=== PATIENT | male | born 1935 | race Asian ===

== ENCOUNTER 2018-01-14 18:25 | Emergency (ER) | END 2018-01-14 22:42 | disposition home or self-care (01) ==

== ENCOUNTER 2018-07-10 12:47 | Inpatient (IN) | payer MEDICARE, BC ==
[~2018-07-10] VITALS: Ht 170.2 cm; Wt 61.8 kg
[~2018-07-10 12:47] MED LIST: ATOR40TA68 PO; CLOP75TA19 PO; DUTA0.5C PO; OLME40TA13 PO; TAMS0.4C2 PO
--- NOTE | 2018-07-10 13:47 | ERD ---
ER Documentation Chief Complaint Chief Complaint pt is bib with c/o feeling weak since this am, HPI 83-year-old male with a history of hypertension with pacemaker brought in by his for a complete planes of feeling weak since this morning intermittently. He denies any associated chest pain, shortness of breath, nausea or vomiting. No fevers or chills. No abdominal pain, dysuria, hematuria, decrease in urination. Patient has felt like this in the past and was brought here a few months ago for similar symptoms. But at that time he was vomiting. He was recently taken off of the beta-cooper 1 week ago due to hypotension. He is currently on amiodarone. ROS All systems reviewed and are negative except as per history of present illness. Medications Home Meds Reported Medications Atorvastatin* (Atorvastatin*) 40 Mg Tablet, 40 MG PO QHS, #30 TAB 07/10/18 Tamsulosin Hcl* (Tamsulosin Hcl*) 0.4 Mg Cap.er.24h, 0.4 MG PO HS, CAP 07/10/18 Olmesartan Medoxomil (Benicar) 40 Mg Tablet, 40 MG PO DAILY, #30 TAB 07/10/18 Amiodarone Hcl* (Amiodarone Hcl*) 100 Mg Tablet, 100 MG PO DAILY, #30 TAB 07/10/18 Clopidogrel Bisulfate* (Clopidogrel Bisulfate*) 75 Mg Tablet, 75 MG PO DAILY, #30 TAB 07/10/18 Dutasteride* (Avodart*) 0.5 Mg Capsule, 0.5 MG PO DAILY, CAP 07/10/18 Discontinued Reported Medications Dutasteride* (Avodart*) 0.5 Mg Capsule, 0.5 MG PO DAILY, CAP 01/14/18 Tamsulosin Hcl* (Tamsulosin Hcl*) 0.4 Mg Cap.er.24h, 0.4 MG PO HS, CAP 01/14/18 Clopidogrel Bisulfate* (Clopidogrel Bisulfate*) 75 Mg Tablet, 75 MG PO DAILY, #30 TAB 01/14/18 Olmesartan Medoxomil (Benicar) 40 Mg Tablet, 40 MG PO DAILY, #30 TAB 01/14/18 Atorvastatin* (Atorvastatin*) 40 Mg Tablet, 40 MG PO QHS, #30 TAB 01/14/18 Allergies Allergies: Coded Allergies: No Known Allergy (Unverified , 07/10/18) PMhx/Soc History of Surgery: Yes (pacemaker) Anesthesia Reaction: No Hx Neurological Disorder: No Hx Respiratory Disorders: No Hx Cardiac Disorders: Yes (htn ) Hx Psychiatric Problems: No Hx Miscellaneous Medical Probl: No Hx Alcohol Use: No Hx Substance Use: No Hx Tobacco Use: No Smoking Status: Never smoker FmHx Family History: No diabetes Physical Exam Vitals Vital Signs Date Temp Pulse Resp B/P (MAP) Pulse Ox O2 O2 Flow FiO2 Time Delivery Rate 07/10/18 Nasal 2 14:02 Cannula 07/10/18 98.3 35 18 161/74 98 12:57 (103) Physical Exam Const: No acute distress, well-appearing, nontoxic, no diaphoresis Head: Atraumatic Eyes: Normal Conjunctiva ENT: Dry mucous membranes. Normal External Ears, Nose and Mouth. Neck: Full range of motion. No meningismus. Resp: Clear to auscultation bilaterally Cardio: Irregular rhythm, normal rate at time of examination. No murmurs. 2+ distal pulses Abd: Soft, non tender, non distended. Normal bowel sounds Skin: No petechiae or rashes Back: No midline or flank tenderness Ext: No cyanosis, or edema Neur: Awake and alert, oriented x3, normal speech, no facial asymmetry, strength and sensations intact in all 4 extremities Psych: Normal Mood and Affect Result Diagram: 07/10/18 1318 07/10/18 1318 Results 24 hrs Laboratory Tests Test 07/10/18 13:18 White Blood Count 6.5 10^3/ul Red Blood Count 4.18 10^6/ul Hemoglobin 13.3 g/dl Hematocrit 39.1 % Mean Corpuscular Volume 93.5 fl Mean Corpuscular Hemoglobin 31.8 pg Mean Corpuscular Hemoglobin Concent 34.0 g/dl Red Cell Distribution Width 13.0 % Platelet Count 189 10^3/UL Mean Platelet Volume 8.9 fl Immature Granulocytes % 0.300 % Neutrophils % 64.1 % Lymphocytes % 16.6 % Monocytes % 12.9 % Eosinophils % 5.5 % Basophils % 0.6 % Nucleated Red Blood Cells % 0.0 /100WBC Immature Granulocytes # 0.020 10^3/ul Neutrophils # 4.2 10^3/ul Lymphocytes # 1.1 10^3/ul Monocytes # 0.8 10^3/ul Eosinophils # 0.4 10^3/ul Basophils # 0.0 10^3/ul Nucleated Red Blood Cells # 0.0 10^3/ul Sodium Level 131 mmol/L Potassium Level 4.1 mmol/L Chloride Level 97 mmol/L Carbon Dioxide Level 25 mmol/L Anion Gap 9 Blood Urea Nitrogen 17 mg/dl Creatinine 0.72 mg/dl Est Glomerular Filtrat Rate mL/min mL/min Glucose Level 81 mg/dl Calcium Level 9.1 mg/dl Troponin I < 0.012 ng/ml Current Medications Medications Dose Sig/Agustín Start Time Status Last (Trade) Ordered Route PRN Stop Time Admin Dose Reason Admin Sodium 1,000 ml @ Q1H ONCE 07/10/18 Chloride 1,000 mls/hr IV 15:20 07/10/18 16:19 Ondansetron 4 mg ER BRIDGE 07/10/18 HCl (Zofran PRN IV 15:30 Inj) NAUSEA/VOMITI 07/11/18 15:29 NG 650 mg ER BRIDGE 07/10/18 Acetaminophen PRN PO 15:30 (Tylenol .MILD PAIN 07/11/18 15:29 Tab) 1-3 OR TEMP Procedures/MDM EMERGENT LABS AND DIAGNOSTIC STUDIES: Lab Results above were reviewed and interpreted by me. CBC: no anemia or evidence of infection BMP: Mild hyponatremia. No evidence of significant electrolyte abnormality, renal failure, hypoglycemia Troponin within normal limits, not indicative of cardiac ischemia EKG: Rate/Rhythm: Sinus rhythm with PVCs and bigeminy pattern QRS, ST, T-waves: Right bundle branch block, No changes consistent w/ acute ischemia Impression: No evidence of ischemia or arrhythmia EKG: Rate/Rhythm: Electronic ventricular pacemaker at 78 bpm with occasional PVCs in the trigeminy pattern QRS, ST, T-waves: [No changes consistent w/ acute ischemia] Impression: Frequent PVCs, no ischemic changes Radiology Results as interpreted by Radiology below were reviewed by Lynette Arvizu MD: Chest x-ray shows no acute abnormalities Initial Nursing notes reviewed. Previous Medical Records requested via the Electronic Health Record. EMERGENCY DEPARTMENT COURSE / MEDICAL DECISION MAKING: Patient is presenting with generalized weakness, likely secondary to his ectopy causing pacemaker to not function appropriately. No evidence of acute coronary syndrome. Possible dehydration. He was given 1 L of IV fluids. Pacemaker was interrogated. Per the interrogator, pacemaker is functioning normally. However since the patient is having frequent ectopic beats, this is during the pacemaker off which is likely causing him to feel weak. There is no evidence of severe electrolyte abnormality that requires correction. The cause of his ectopy is unclear at this time. However the patient will need admission for telemetry monitoring and cardiology consult. Accepting Care Team: Current data and ongoing care discussed. Time: Time of admission Primary Provider: Dr. Zuhair Sykes Diagnosis: Primary Impression: Acute weakness Additional Impression: Frequent PVCs Condition: Serious NOAH ARVIZU MD Jul 10, 2018 13:47
[2018-07-10] MEDS ORDERED: DUTA0.5C PO (13:54)
[2018-07-10] MEDS ORDERED: CLOP75TA19 PO (13:54)
[2018-07-10] MEDS ORDERED: AMIO100T4 PO (13:54)
[2018-07-10] MEDS ORDERED: OLME40TA13 PO (13:55)
[2018-07-10] MEDS ORDERED: TAMS0.4C2 PO (13:55)
[2018-07-10] MEDS ORDERED: ATOR40TA68 PO (13:56)
[2018-07-10] MEDS ORDERED: SOD CHLORIDE 0.9% 1,000 ML IV ONE (15:20)
[2018-07-10] MEDS ORDERED: ONDANSETRON 4 MG INJ IV PRN ×2 (15:30→17:30)
[2018-07-10] MEDS ORDERED: ACETAMINOPHEN 325 MG TAB PO PRN ×2 (15:30→17:30)
[2018-07-10 17:12] VITALS: BP 154/75; PULSE 58; RESP 20
[2018-07-10 17:13] VITALS: PULSE 79
[2018-07-10] MEDS ORDERED: DOCUSATE SODIUM 100 MG CAP PO PRN (17:30)
[2018-07-10] MEDS ORDERED: NACL 0.9% 3 ML SYG IV SCH (17:30)
[2018-07-10] MEDS ORDERED: hydrALAzine 20 MG INJ IV PRN (17:30)
[2018-07-10] MEDS ORDERED: NITROGLYCERIN (SL) 0.4 MG TAB SL PRN (17:30)
[2018-07-10] MEDS ORDERED: morphine 2 MG INJ IV PRN (17:30)
[2018-07-10] MEDS ORDERED: HYDROCODONE/APAP (5/325) TAB PO PRN (17:30)
[2018-07-10] MEDS ORDERED: LORAZEPAM 2 MG INJ IV PRN (17:30)
[2018-07-10] MEDS ORDERED: ALBUTEROL/IPRATROPIUM (NEB) 3 ML AMP HHN PRN (17:30)
[2018-07-10] MEDS ORDERED: MAGNESIUM HYDROXIDE 30ML CUP PO PRN (17:30)
[2018-07-10 17:49] VITALS: Ht 170.2 cm; Wt 61.8 kg
[2018-07-10] MEDS: SOD CHLORIDE 0.45% 1,000 ML IV SCH (18:45)
[2018-07-10 20:00] VITALS: BP 123/59; PULSE 71; RESP 20
[2018-07-10 20:01] VITALS: PULSE 70
[2018-07-10] MEDS: TAMSULOSIN (SR) 0.4 MG CAP PO SCH (20:13)
[2018-07-10] MEDS: ATORVASTATIN 40 MG TAB PO SCH (20:13)
--- NOTE | 2018-07-10 20:20 | HP ---
DATE OF ADMISSION: 07/10/2018 IDENTIFICATION: This is an 83-year-old male. CHIEF COMPLAINT: Weakness and bradycardia. HISTORY OF PRESENT ILLNESS: An 83-year-old male with past medical history of hypertension, pacemaker placement about 3 years ago, has been having weakness symptoms. Symptoms have been going on for the last few days. The patient denies any chest pain or shortness of breath, no fevers or chills or traci sea, vomiting, no upper or lower GI bleeding, no diarrhea or constipation. Apparently, the patient w as recently put on either amiodarone or amlodipine as an outpatient and he has been taking that for t he last week that was prescribed by his heart doctor. Since that time, he has been feeling weak. Ap parently he had been taking a beta cooper before that for the last 2 months, but his heart doctor, a ccording to the family, had stopped that medicine because the patient had been having a low blood pre ssure and possible low heart rate at that time. When the patient came in to the ER today, he was fou nd with heart rate in the 30s and the ER called the pacemaker people to come interrogate the pacemake r. They found that the pacemaker appears to be functioning normally, but the patient is having frequ ent ectopic beats, which is causing the pacemaker to not function appropriately. PAST MEDICAL HISTORY: As above. ALLERGIES: NO KNOWN DRUG ALLERGIES. HOME MEDICATIONS: 1. Again, he has been on amlodipine or amiodarone as an outpatient. 2. Also, on atorvastatin 40 mg at bedtime. 3. Plavix 75 mg daily. 4. Flomax 0.4 mg at bedtime. 5. Avodart 0.5 mg daily. PAST SURGICAL HISTORY: Pacemaker placement in the past, cataract surgery in the past. SOCIAL HISTORY: Negative for smoking , drinking, or IV drug abuse. FAMILY HISTORY: Noncontributory. PHYSICAL EXAMINATION: VITAL SIGNS: Today, T-max 98.3, pulse 35, respirations 18, blood pressure 161/74, satting at 98% on 2 liters nasal cannula. GENERAL: The patient is lying in bed. is at the bedside. No acute distress. HEENT: Pupils equal, round, react to light. Extraocular muscles intact. NECK: Supple, no thyromegaly. LUNGS: Slightly distant breath sounds bilaterally. CARDIOVASCULAR: Slightly bradycardic heart rate. No rubs or gallops. ABDOMEN: Soft, nontender, nondistended. Normal bowel sounds. No rebound or guarding. MUSCULOSKELETAL: No lower extremity edema bilaterally. NEUROLOGIC: No focal deficits. LABORATORIES: The CBC is normal. The basic metabolic panel is normal. Troponin is negative x1. Co ags are normal. Chest x-ray shows cardiomegaly and atherosclerosis, permanent pacemaker, otherwise u nremarkable. ASSESSMENT AND PLAN: An 83-year-old male with weakness with signs of bradycardia and ectopic beats, possibly causing his pacemaker to not function properly, prior history of pacemaker placement and hyp ertension. 1. Weakness, likely secondary to patient's bradycardia as his pacemaker appears not to be functionin g appropriately secondary to ectopic beats. Admit the patient. We will hold his home blood pressure medicines for now hydralazine 10 mg IV q.6 p.r.n. systolic greater than 160. We will monitor his heart rate very carefully. We will get a cardiology consult as well. We will get echocardiogram as well. The patient may need to be on a new cardiac medication that does not interfere or potentia lly cause ectopic beats that interferes with his pacemaker but we will discuss this with the cardiolo gy team. For now, continue Plavix. 2. Looks like possible high cholesterol. Follow up lipid panel. Continue Lipitor. 3. History of prostate issues. Continue Flomax. 4. Deep venous thrombosis prophylaxis, sequential compression devices. 5. Hypertension. See #1. Dictated By: RODY MUHAMMAD Conf#: [id number] DID#: [id number]
[2018-07-11] VITALS (11 sets, daily range): BP systolic 127–149; BP diastolic 56–63; PULSE 64–99; RESP 18–20
[2018-07-11] MEDS: SOD CHLORIDE 0.45% 1,000 ML IV SCH (07:30)
[2018-07-11] MEDS: DUTASTERIDE 0.5 MG CAP PO SCH (09:27)
[2018-07-11] MEDS: CLOPIDOGREL 75 MG TAB PO SCH (09:27)
--- NOTE | 2018-07-11 11:55 | PN ---
Date/Time of Note Date/Time of Note DATE: 07/11/18 TIME: 11:52 Assessment/Plan VTE Prophylaxis Risk score (from Nsg)>0 risk: 4 SCD applied (from Nsg): Yes Pharmacological prophylaxis: other Lines/Catheters IV Catheter Type (from Nrsg): Peripheral IV Assessment/Plan Hospital Course S: Patient's heart rate overall appears to be improved since yesterday, although having some PVCs and it appears to not be pacing every beat consistently. Asymptomatic. Per nursing staff appeared to tolerate diet last night, presently an order was placed for n.p.o. this morning however. Waiting to be seen by cardiology team. O: VS - see below PHYSICAL EXAMINATION: GENERAL: lying in bed. No acute distress. HEENT: Pupils equal, round, react to light. Extraocular muscles intact. NECK: Supple, no thyromegaly. LUNGS: Slightly distant breath sounds bilaterally. CARDIOVASCULAR: Slightly bradycardic heart rate. No rubs or gallops. ABDOMEN: Soft, nontender, nondistended. Normal bowel sounds. No rebound or guarding. MUSCULOSKELETAL: No lower extremity edema bilaterally. NEUROLOGIC: No focal deficits. ASSESSMENT AND PLAN: 83-year-old male with weakness with signs of bradycardia and ectopic beats, possibly causing his pacemaker to not function properly, prior history of pacemaker placement and hypertension. 1. Weakness- likely secondary to patient's bradycardia as his pacemaker appears not to be functioning appropriately secondary to ectopic beats. - Again holding his home Bystolic and amiodarone which the patient apparently was taking at least a week prior to this admission. - monitor heart rate, follow-up recommendations from cardiology team - For now, continue Plavix. - PT and OT eval's have been ordered since yesterday, follow-up official consults of these 2. high cholesterol - Continue Lipitor. 3. History of prostate issues. Continue Flomax. 4. Deep venous thrombosis prophylaxis, sequential compression devices. 5. Hypertension. See #1. Result Diagram: 07/11/18 0559 07/11/18 0559 Results 24hrs Laboratory Tests Test 07/10/18 13:18 07/10/18 18:19 07/11/18 05:59 White Blood Count 6.5 4.4 #L Red Blood Count 4.18 L 4.05 L Hemoglobin 13.3 L 12.9 L Hematocrit 39.1 L 37.2 L Mean Corpuscular Volume 93.5 91.9 Mean Corpuscular Hemoglobin 31.8 31.9 Mean Corpuscular Hemoglobin Concent 34.0 34.7 Red Cell Distribution Width 13.0 12.7 Platelet Count 189 190 Mean Platelet Volume 8.9 9.2 Immature Granulocytes % 0.300 0.500 H Neutrophils % 64.1 54.7 Lymphocytes % 16.6 20.1 Monocytes % 12.9 H 15.1 H Eosinophils % 5.5 8.9 H Basophils % 0.6 0.7 Nucleated Red Blood Cells % 0.0 0.0 Immature Granulocytes # 0.020 0.020 Neutrophils # 4.2 2.4 Lymphocytes # 1.1 0.9 Monocytes # 0.8 0.7 Eosinophils # 0.4 0.4 Basophils # 0.0 0.0 Nucleated Red Blood Cells # 0.0 0.0 Sodium Level 131 L 130 L Potassium Level 4.1 4.3 Chloride Level 97 100 Carbon Dioxide Level 25 23 Anion Gap 9 7 Blood Urea Nitrogen 17 15 Creatinine 0.72 0.71 Est Glomerular Filtrat Rate mL/min Glucose Level 81 83 Calcium Level 9.1 8.6 Troponin I < 0.012 Free Thyroxine 1.30 Prothrombin Time 12.8 Prothrombin Time Ratio 1.0 INR International Normalized Ratio 0.95 Activated Partial Thromboplast Time 32.6 Hemoglobin A1c 5.7 Phosphorus Level 3.2 Magnesium Level 2.2 Triglycerides Level 40 Cholesterol Level 103 LDL Cholesterol, Calculated 51 HDL Cholesterol 44 Cholesterol/HDL Ratio 2.3 Thyroid Stimulating Hormone (TSH) 1.600 Exam/Review of Systems Exam Vitals Vital Signs Date Temp Pulse Resp B/P (MAP) Pulse Ox O2 O2 Flow FiO2 Time Delivery Rate 07/11/18 98.4 71 20 129/61 92 Room Air 11:08 (83) 07/11/18 2.0 00:56 Intake and Output 07/10/18 07/10/18 07/11/18 1515:00 23:00 07:00 IntakeIntake Total 1300 ml 450 ml OutputOutput Total 400 ml 800 ml BalanceBalance 900 ml -350 ml Results Results 24hrs Laboratory Tests Test 07/10/18 13:18 07/10/18 18:19 07/11/18 05:59 White Blood Count 6.5 4.4 #L Red Blood Count 4.18 L 4.05 L Hemoglobin 13.3 L 12.9 L Hematocrit 39.1 L 37.2 L Mean Corpuscular Volume 93.5 91.9 Mean Corpuscular Hemoglobin 31.8 31.9 Mean Corpuscular Hemoglobin Concent 34.0 34.7 Red Cell Distribution Width 13.0 12.7 Platelet Count 189 190 Mean Platelet Volume 8.9 9.2 Immature Granulocytes % 0.300 0.500 H Neutrophils % 64.1 54.7 Lymphocytes % 16.6 20.1 Monocytes % 12.9 H 15.1 H Eosinophils % 5.5 8.9 H Basophils % 0.6 0.7 Nucleated Red Blood Cells % 0.0 0.0 Immature Granulocytes # 0.020 0.020 Neutrophils # 4.2 2.4 Lymphocytes # 1.1 0.9 Monocytes # 0.8 0.7 Eosinophils # 0.4 0.4 Basophils # 0.0 0.0 Nucleated Red Blood Cells # 0.0 0.0 Sodium Level 131 L 130 L Potassium Level 4.1 4.3 Chloride Level 97 100 Carbon Dioxide Level 25 23 Anion Gap 9 7 Blood Urea Nitrogen 17 15 Creatinine 0.72 0.71 Est Glomerular Filtrat Rate mL/min Glucose Level 81 83 Calcium Level 9.1 8.6 Troponin I < 0.012 Free Thyroxine 1.30 Prothrombin Time 12.8 Prothrombin Time Ratio 1.0 INR International Normalized Ratio 0.95 Activated Partial Thromboplast Time 32.6 Hemoglobin A1c 5.7 Phosphorus Level 3.2 Magnesium Level 2.2 Triglycerides Level 40 Cholesterol Level 103 LDL Cholesterol, Calculated 51 HDL Cholesterol 44 Cholesterol/HDL Ratio 2.3 Thyroid Stimulating Hormone (TSH) 1.600 Medications Medication Current Medications IV Flush (NS 3 ml) 3 ml PER PROTOCOL IV ; Start 07/10/18 at 17:30 Ondansetron HCl (Zofran Inj) 4 mg Q6H PRN IV NAUSEA/VOMITING; Start 07/10/18 at 17:30 Acetaminophen (Tylenol Tab) 650 mg Q6H PRN PO .PAIN 1-3 OR TEMP; Start 07/10/18 at 17:30 Acetaminophen/ Hydrocodone Bitart ([place] (5/325)) 1 tab Q6H PRN PO .MOD PAIN 4- 6; Start 07/10/18 at 17:30 Morphine Sulfate (morphine) 2 mg Q4H PRN IV .SEVERE PAIN 7-10; Start 07/10/18 at 17:30 Docusate Sodium (Colace) 100 mg Q12H PRN PO .CONSTIPATION; Start 07/10/18 at 17:30 Magnesium Hydroxide (Milk Of Mag) 30 ml DAILY PRN PO .CONSTIPATION; Start 07/10/18 at 17:30 Sodium Chloride 1,000 ml @ 75 mls/hr [id number] IV Last administered on 07/10/18at 18:45; Admin Dose 75 MLS/HR; Start 07/10/18 at 17:29 Lorazepam (Ativan) 0.5 mg Q6H PRN IV ANXIETY; Start 07/10/18 at 17:30 Albuterol/ Ipratropium (Duoneb) 3 ml Q4H RESP THERAPY PRN HHN SHORTNESS OF BREATH; Start 07/10/18 at 17:30 Hydralazine HCl (Apresoline) 10 mg Q6H PRN IV ELEVATED BLOOD PRESSURE; Start 07/10/18 at 17:30 Nitroglycerin (Nitroglycerin (Sl Tab) 0.4 Mg) 1 tab Q5M PRN SL ANGINA; Start 07/10/18 at 17:30 Atorvastatin Calcium (Lipitor) 40 mg QHS PO Last administered on 07/10/18at 20:13; Admin Dose 40 MG; Start 07/10/18 at 21:00 Clopidogrel Bisulfate (plaVIX) 75 mg DAILY PO Last administered on 07/11/18at 09:27; Admin Dose 75 MG; Start 07/11/18 at 09:00 Dutasteride (Avodart) 0.5 mg DAILY PO Last administered on 07/11/18 09:27; Admin Dose 0.5 MG; Start 07/11/18 at 09:00 Tamsulosin HCl (Flomax) 0.4 mg HS PO Last administered on 07/10/18at 20:13; Admin Dose 0.4 MG; Start 07/10/18 at 21:00 RODY FOUNTAIN Jul 11, 2018 11:55
--- NOTE | 2018-07-11 15:10 | CONS ---
Assessment/Plan Assessment/Plan Hospital Course (Demo Recall) dizziness symptomatic frequent PVC HTN Dyslipidemia BPH SSS S/ P PPM REC: start amiodarone drip toprol xl tele monitoring echo correct lytes including Mg K prn thank you KENNEDI CHAMBERS MD Consultation Date/Type/Reason Admit Date/Time Jul 10, 2018 at 15:22 Date of Consultation: Jul 11, 2018 Type of Consult Cardiology Reason for Consultation arrhythmia Requesting Provider: RODY FOUNTAIN Date/Time of Note DATE: 07/11/18 TIME: 15:03 Hx of Present Illness CARDIOLOGY CONSULTATION NOTE CC: dizziness HPI: This is a pleasant 83-year-old male with past medical history of hypertension, BIIOTRONIK pacemaker placement about 3 years ago, has been having weakness and dizziness x weeks. 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 in ER he was noted to have frequent PC and subsequently bradycardic pulse due to frequent PVC. The patient denies any chest pain or shortness of breath, no fevers or chills or nausea, vomiting, no upper or lower GI bleeding, no diarrhea or constipation. D/W his PAST MEDICAL HISTORY: HTN Dyslipidemia sss s/ pPPM BPH ALLERGIES: NO KNOWN DRUG ALLERGIES. HOME MEDICATIONS: 1. Again, he has been on amlodipine or amiodarone as an outpatient. 2. Also, on atorvastatin 40 mg at bedtime. 3. Plavix 75 mg daily. 4. Flomax 0.4 mg at bedtime. 5. Avodart 0.5 mg daily. PAST SURGICAL HISTORY: Biotronik Pacemaker placement in the past, cataract surgery in the past. SOCIAL HISTORY: Negative for smoking , drinking, or IV drug abuse. FAMILY HISTORY: No CAD ROS: as above only. he denies all others Past Medical History Home Meds Reported Medications Atorvastatin* (Atorvastatin*) 40 Mg Tablet, 40 MG PO QHS, #30 TAB 07/10/18 Tamsulosin Hcl* (Tamsulosin Hcl*) 0.4 Mg Cap.er.24h, 0.4 MG PO HS, CAP 07/10/18 Olmesartan Medoxomil (Benicar) 40 Mg Tablet, 40 MG PO DAILY, #30 TAB 07/10/18 Amiodarone Hcl* (Amiodarone Hcl*) 100 Mg Tablet, 100 MG PO DAILY, #30 TAB 07/10/18 Clopidogrel Bisulfate* (Clopidogrel Bisulfate*) 75 Mg Tablet, 75 MG PO DAILY, #30 TAB 07/10/18 Dutasteride* (Avodart*) 0.5 Mg Capsule, 0.5 MG PO DAILY, CAP 07/10/18 Discontinued Reported Medications Dutasteride* (Avodart*) 0.5 Mg Capsule, 0.5 MG PO DAILY, CAP 01/14/18 Tamsulosin Hcl* (Tamsulosin Hcl*) 0.4 Mg Cap.er.24h, 0.4 MG PO HS, CAP 01/14/18 Clopidogrel Bisulfate* (Clopidogrel Bisulfate*) 75 Mg Tablet, 75 MG PO DAILY, #30 TAB 01/14/18 Olmesartan Medoxomil (Benicar) 40 Mg Tablet, 40 MG PO DAILY, #30 TAB 01/14/18 Atorvastatin* (Atorvastatin*) 40 Mg Tablet, 40 MG PO QHS, #30 TAB 01/14/18 Medications Current Medications IV Flush (NS 3 ml) 3 ml PER PROTOCOL IV ; Start 07/10/18 at 17:30 Ondansetron HCl (Zofran Inj) 4 mg Q6H PRN IV NAUSEA/VOMITING; Start 07/10/18 at 17:30 Acetaminophen (Tylenol Tab) 650 mg Q6H PRN PO .PAIN 1-3 OR TEMP; Start 07/10/18 at 17:30 Acetaminophen/ Hydrocodone Bitart ([place] (5/325)) 1 tab Q6H PRN PO .MOD PAIN 4- 6; Start 07/10/18 at 17:30 Morphine Sulfate (morphine) 2 mg Q4H PRN IV .SEVERE PAIN 7-10; Start 07/10/18 at 17:30 Docusate Sodium (Colace) 100 mg Q12H PRN PO .CONSTIPATION; Start 07/10/18 at 17:30 Magnesium Hydroxide (Milk Of Mag) 30 ml DAILY PRN PO .CONSTIPATION; Start 07/10/18 at 17:30 Lorazepam (Ativan) 0.5 mg Q6H PRN IV ANXIETY; Start 07/10/18 at 17:30 Albuterol/ Ipratropium (Duoneb) 3 ml Q4H RESP THERAPY PRN HHN SHORTNESS OF BREATH; Start 07/10/18 at 17:30 Hydralazine HCl (Apresoline) 10 mg Q6H PRN IV ELEVATED BLOOD PRESSURE; Start 07/10/18 at 17:30 Nitroglycerin (Nitroglycerin (Sl Tab) 0.4 Mg) 1 tab Q5M PRN SL ANGINA; Start 07/10/18 at 17:30 Atorvastatin Calcium (Lipitor) 40 mg QHS PO Last administered on 07/10/18at 20:13; Admin Dose 40 MG; Start 07/10/18 at 21:00 Clopidogrel Bisulfate (plaVIX) 75 mg DAILY PO Last administered on 07/11/18at 09:27; Admin Dose 75 MG; Start 07/11/18 at 09:00 Dutasteride (Avodart) 0.5 mg DAILY PO Last administered on 07/11/18at 09:27; Admin Dose 0.5 MG; Start 07/11/18 at 09:00 Tamsulosin HCl (Flomax) 0.4 mg HS PO Last administered on 07/10/18at 20:13; Admin Dose 0.4 MG; Start 07/10/18 at 21:00 Allergies: Coded Allergies: No Known Allergy (Unverified , 07/10/18) Social History Smoking Status: Never smoker Exam/Review of Systems Vital Signs Vitals Vital Signs Date Temp Pulse Resp B/P (MAP) Pulse Ox O2 O2 Flow FiO2 Time Delivery Rate 07/11/18 70 12:00 07/11/18 98.4 20 129/61 92 Room Air 11:08 (83) 07/11/18 2.0 00:56 Intake and Output 07/10/18 07/10/18 07/11/18 1515:00 23:00 07:00 IntakeIntake Total 1300 ml 450 ml OutputOutput Total 400 ml 800 ml BalanceBalance 900 ml -350 ml Exam Exam GEN ; no acute distres HEENT: NCAT. ANABELLA Neck no stridor or JVD CV RRR systolic murmur pulM: CTA b/l . no wheezing. no rhonchi GI: soft NT ND. NO rebound or guarding ext no C/C/E NEURO: AXO X 3 Psych; calm and pleasant ECG A paced with frequent PVC bigeminy CXR no acute disease pacer interrogation; normal function. battery for > 6 years left Labs Result Diagram: 07/11/1859 07/11/1859 Results 24hrs Laboratory Tests Test 07/10/18 18:19 07/11/18 05:59 Prothrombin Time 12.8 Prothrombin Time Ratio 1.0 INR International Normalized Ratio 0.95 Activated Partial Thromboplast Time 32.6 White Blood Count 4.4 #L Red Blood Count 4.05 L Hemoglobin 12.9 L Hematocrit 37.2 L Mean Corpuscular Volume 91.9 Mean Corpuscular Hemoglobin 31.9 Mean Corpuscular Hemoglobin Concent 34.7 Red Cell Distribution Width 12.7 Platelet Count 190 Mean Platelet Volume 9.2 Immature Granulocytes % 0.500 H Neutrophils % 54.7 Lymphocytes % 20.1 Monocytes % 15.1 H Eosinophils % 8.9 H Basophils % 0.7 Nucleated Red Blood Cells % 0.0 Immature Granulocytes # 0.020 Neutrophils # 2.4 Lymphocytes # 0.9 Monocytes # 0.7 Eosinophils # 0.4 Basophils # 0.0 Nucleated Red Blood Cells # 0.0 Sodium Level 130 L Potassium Level 4.3 Chloride Level 100 Carbon Dioxide Level 23 Anion Gap 7 Blood Urea Nitrogen 15 Creatinine 0.71 Est Glomerular Filtrat Rate mL/min Glucose Level 83 Hemoglobin A1c 5.7 Calcium Level 8.6 Phosphorus Level 3.2 Magnesium Level 2.2 Triglycerides Level 40 Cholesterol Level 103 LDL Cholesterol, Calculated 51 HDL Cholesterol 44 Cholesterol/HDL Ratio 2.3 Thyroid Stimulating Hormone (TSH) 1.600 Medications Medications Current Medications IV Flush (NS 3 ml) 3 ml PER PROTOCOL IV ; Start 07/10/18 at 17:30 Ondansetron HCl (Zofran Inj) 4 mg Q6H PRN IV NAUSEA/VOMITING; Start 07/10/18 at 17:30 Acetaminophen (Tylenol Tab) 650 mg Q6H PRN PO .PAIN 1-3 OR TEMP; Start 07/10/18 at 17:30 Acetaminophen/ Hydrocodone Bitart ([place] (5/325)) 1 tab Q6H PRN PO .MOD PAIN 4- 6; Start 07/10/18 at 17:30 Morphine Sulfate (morphine) 2 mg Q4H PRN IV .SEVERE PAIN 7-10; Start 07/10/18 at 17:30 Docusate Sodium (Colace) 100 mg Q12H PRN PO .CONSTIPATION; Start 07/10/18 at 17:30 Magnesium Hydroxide (Milk Of Mag) 30 ml DAILY PRN PO .CONSTIPATION; Start 07/10/18 at 17:30 Lorazepam (Ativan) 0.5 mg Q6H PRN IV ANXIETY; Start 07/10/18 at 17:30 Albuterol/ Ipratropium (Duoneb) 3 ml Q4H RESP THERAPY PRN HHN SHORTNESS OF BREATH; Start 07/10/18 at 17:30 Hydralazine HCl (Apresoline) 10 mg Q6H PRN IV ELEVATED BLOOD PRESSURE; Start 07/10/18 at 17:30 Nitroglycerin (Nitroglycerin (Sl Tab) 0.4 Mg) 1 tab Q5M PRN SL ANGINA; Start 07/10/18 at 17:30 Atorvastatin Calcium (Lipitor) 40 mg QHS PO Last administered on 07/10/18at 20:13; Admin Dose 40 MG; Start 07/10/18 at 21:00 Clopidogrel Bisulfate (plaVIX) 75 mg DAILY PO Last administered on 07/11/18 09:27; Admin Dose 75 MG; Start 07/11/18 at 09:00 Dutasteride (Avodart) 0.5 mg DAILY PO Last administered on 07/11/18 09:27; Admin Dose 0.5 MG; Start 07/11/18 at 09:00 Tamsulosin HCl (Flomax) 0.4 mg HS PO Last administered on 07/10/18at 20:13; Admin Dose 0.4 MG; Start 07/10/18 at 21:00 KENNEDI CHAMBERS MD Jul 11, 2018 15:10
[2018-07-11] MEDS ORDERED: AMIODARONE 150MG/D5W BOLUS 100 ML IV ONE (15:30)
[2018-07-11] MEDS: AMIODARONE 900 MG in DEXTROSE 5% 482 ML IV SCH (16:56)
--- NOTE | 2018-07-11 17:44 | RADRPT ---
Echocardiogram Report Patient Name: JEEWL SOPatient ID: [id number] : 114 (83y 5m)Study Date: 07/11/2018 9:36:36 AM Gender: MAccession #: [id number] Tech: TYRA Location: Ref.Physician: RODY FOUNTAIN Height(Cm): 168 BSA: 1.67Weight(Kg): 59.9 Quality: GoodAccount #: Procedures: Echocardiographic Report: Transthoracic echocardiogram with complete 2D, M-Mode, and doppler examination. Indications: Bradycardia. Measurements: 2D/M Mode Doppler Measurement Value Normal Range Measurement Value Normal Range LVIDd 2D 4.8 [ 4.2 - 5.8 ] cm AV Peak Mario 1.9 [ 100.0 - 170.0 ] cm/se c LVIDs 2D 2.5 [ 2.5 - 4.0 ] cm AV Peak PG 14.0 [ 2.0 - 9.0 ] mmHg LVPWd 2D 0.8 [ 0.6 - 1.0 ] cm LVOT Peak Mario 1.2 [ 70.0 - 110.0 ] cm/sec IVSd 2D 1.2 [ 0.6 - 1.0 ] cm LVOT Peak PG 6.0 [ 2.0 - 6.0 ] mmHg AoR Diam 2D 4.4 [ 2.6 - 3.4 ] cm MV E Peak Mario 0.8 [ 60.0 - 130.0 ] cm/sec EDV 2D 105.0 [ 62.0 - 150.0 ] ml MV A Peak Mario 1.4 [ 100.0 - 120.0 ] cm/se c ESV 2D 23.2 [ 21.0 - 61.0 ] ml MV E/A 0.6 [ 0.8 - 1.5 ] ratio EF 2D 77.9 [ 52.0 - 72.0 ] percent MV PHT 64.0 [ 20.0 - 100.0 ] msec LA Dimen 2D 3.7 [ 3.0 - 4.0 ] cm MV Decel Time 218 [ 104 - 258 ] msec MV Decel [place] 4 Lat E` Mario 0.1 [ 10.0 - 15.0 ] cm/sec Lateral E/E` 9.1 [ 1.0 - 2.0 ] ratio MV E/A 0.6 [ 0.8 - 1.5 ] ratio MVA PHT 3.4 [ 2.0 - 4.0 ] cm2 TR Peak Mario 2.6 [ 100.0 - 280.0 ] cm/se c TR Peak PG 27.0 mmHg PV Peak Mario 1.1 [ 40.0 - 80.0 ] cm/sec PV Peak PG 5.0 mmHg RVSP 37.0 [ 10.0 - 36.0 ] mmHg RA Pressure 10.0 mmHg Findings: Left Ventricle: Abnormal rhythm throughout exam, however, overall normal left ventricular systolic function. Normal left ventricular cavity size. Normal left ventricular wall thickness. Ejection fraction is visually estimated at 60-65 %. Tissue Doppler/Mitral Doppler indices are consistent with impaired relaxation (Stage I diastolic dysfunction). E/E'= 9. Right Ventricle: Normal right ventricular size. Normal right ventricular systolic function. Linear artifact in right ventricle suggestive of catheter, pacer lead, or ICD lead. Left Atrium: The left atrium is normal in size. Right Atrium: The right atrium is normal in size. Atrial Septum: Normal atrial septum. Mitral Valve: Mild mitral annular calcification. Mild mitral valve regurgitation. Aortic Valve: Aortic cusps appear mildly calcified. Trileaflet aortic valve. Mild to moderate aortic valve regurgitation. Tricuspid Valve: Normal appearance and function of the tricuspid valve with trace physiologic regurgitation. Estimated peak PA systolic pressure 37 mmHg. Pulmonic Valve: Normal pulmonic valve appearance. There is trace pulmonic regurgitation. Pericardium: Normal pericardium with no significant pericardial effusion. Aorta: Sinus of valsalva is dilated. Sinus of valsalva 4.40 cm. Ascending aorta is dilated. Ascending Aorta 4.90 cm. IVC: Normal size and normal respiratory collapse consistent with normal right atrial pressure. Pulmonary Artery: Normal pulmonary artery size. Conclusions: Abnormal rhythm throughout exam, however, overall normal left ventricular systolic function. Normal left ventricular cavity size. Normal left ventricular wall thickness. Ejection fraction is visually estimated at 60-65 %. Tissue Doppler/Mitral Doppler indices are consistent with impaired relaxation (Stage I diastolic dysfunction). E/E'= 9. Mild mitral annular calcification. Mild mitral valve regurgitation. Aortic cusps appear mildly calcified. Trileaflet aortic valve. Mild to moderate aortic valve regurgitation. Normal appearance and function of the tricuspid valve with trace physiologic regurgitation. Estimated peak PA systolic pressure 37 mmHg. g. Electronically Signed By: Jarad Valle 2018-07-11 17:43:50 PDT
[2018-07-11] MEDS: ATORVASTATIN 40 MG TAB PO SCH (20:08)
[2018-07-11] MEDS: TAMSULOSIN (SR) 0.4 MG CAP PO SCH (20:08)
[2018-07-11] MEDS: METOPROLOL (XL) 25 MG TAB PO SCH (20:08)
[2018-07-12] VITALS (12 sets, daily range): BP systolic 114–141; BP diastolic 61–82; PULSE 57–70; RESP 18
[2018-07-12] MEDS ORDERED: MELATONIN 5 MG TABLET PO ONE (01:00)
[2018-07-12] MEDS: CLOPIDOGREL 75 MG TAB PO SCH (08:33)
[2018-07-12] MEDS: DUTASTERIDE 0.5 MG CAP PO SCH (08:34)
[2018-07-12] MEDS: METOPROLOL (XL) 25 MG TAB PO SCH ×2 (08:34→20:26)
[2018-07-12] MEDS: AMIODARONE 900 MG in DEXTROSE 5% 482 ML IV SCH (15:51)
--- NOTE | 2018-07-12 18:22 | PN ---
Date/Time of Note Date/Time of Note DATE: 07/12/18 TIME: 18:21 Assessment/Plan VTE Prophylaxis Risk score (from Ns)>0 risk: 5 SCD applied (from Ns): Yes Pharmacological prophylaxis: NA/contraindicated Pharm contraindication: low risk/ambulating Lines/Catheters IV Catheter Type (from [facility]): Peripheral IV Assessment/Plan Assessment/Plan 83-year-old male with weakness with signs of bradycardia and ectopic beats, possibly causing his pacemaker to not function properly, prior history of pacemaker placement and hypertension. 1. Weakness- likely secondary to patient's bradycardia as his pacemaker appears not to be functioning appropriately secondary to ectopic beats. - Again holding his home Bystolic and amiodarone which the patient apparently was taking at least a week prior to this admission. - monitor heart rate, follow-up recommendations from cardiology team - For now, continue Plavix. - PT and OT eval's have been ordered since yesterday, follow-up official consults of these 2. high cholesterol - Continue Lipitor. 3. History of prostate issues. Continue Flomax. 4. Deep venous thrombosis prophylaxis, sequential compression devices. 5. Hypertension. See #1. Result Diagram: 07/12/18 0605 07/12/18 0605 Subjective 24 Hr Interval Summary Free Text/Dictation No acute overnight events. Patient ambulated 100 ft with physical therapy today, some nausea afterwards, no chest pain or SOB. Exam/Review of Systems Exam Vitals Vital Signs Date Temp Pulse Resp B/P (MAP) Pulse Ox O2 O2 Flow FiO2 Time Delivery Rate 07/12/18 59 16:01 07/12/18 98.3 18 129/71 98 15:06 (90) 07/12/18 Room Air 04:00 07/11/18 21 22:11 07/11/18 2.0 18:30 Intake and Output 07/11/18 07/11/18 07/12/18 1515:00 23:00 07:00 IntakeIntake Total 1142.86 ml 966.62 ml BalanceBalance 1142.86 ml 966.62 ml Exam GENERAL: lying in bed. No acute distress. HEENT: Pupils equal, round, react to light. Extraocular muscles intact. NECK: Supple, no thyromegaly. LUNGS: Slightly distant breath sounds bilaterally. CARDIOVASCULAR: Slightly bradycardic heart rate. No rubs or gallops. ABDOMEN: Soft, nontender, nondistended. Normal bowel sounds. No rebound or guarding. MUSCULOSKELETAL: No lower extremity edema bilaterally. Results Results 24hrs Laboratory Tests Test 07/12/18 06:05 White Blood Count 4.8 Red Blood Count 4.24 L Hemoglobin 13.4 L Hematocrit 38.6 L Mean Corpuscular Volume 91.0 Mean Corpuscular Hemoglobin 31.6 Mean Corpuscular Hemoglobin Concent 34.7 Red Cell Distribution Width 12.5 Platelet Count 202 Mean Platelet Volume 9.1 Immature Granulocytes % 0.200 Neutrophils % 60.9 Lymphocytes % 19.1 Monocytes % 12.5 H Eosinophils % 6.7 Basophils % 0.6 Nucleated Red Blood Cells % 0.0 Immature Granulocytes # 0.010 Neutrophils # 2.9 Lymphocytes # 0.9 Monocytes # 0.6 Eosinophils # 0.3 Basophils # 0.0 Nucleated Red Blood Cells # 0.0 Sodium Level 129 L Potassium Level 4.0 Chloride Level 96 L Carbon Dioxide Level 25 Anion Gap 8 Blood Urea Nitrogen 17 Creatinine 0.73 Est Glomerular Filtrat Rate mL/min Glucose Level 109 Calcium Level 8.8 Magnesium Level 2.1 Total Bilirubin 1.5 H Direct Bilirubin 0.00 Indirect Bilirubin 1.5 H Aspartate Amino Transf (AST/SGOT) 23 Alanine Aminotransferase (ALT/SGPT) 19 Alkaline Phosphatase 63 Total Protein 6.2 Albumin 3.4 Globulin 2.80 Albumin/Globulin Ratio 1.21 Medications Medication Current Medications IV Flush (NS 3 ml) 3 ml PER PROTOCOL IV ; Start 07/10/18 at 17:30 Ondansetron HCl (Zofran Inj) 4 mg Q6H PRN IV NAUSEA/VOMITING Last administered on 07/12/18at 10:54; Admin Dose 4 MG; Start 07/10/18 at 17:30 Acetaminophen (Tylenol Tab) 650 mg Q6H PRN PO .PAIN 1-3 OR TEMP; Start 07/10/18 at 17:30 Acetaminophen/ Hydrocodone Bitart ([place] (5/325)) 1 tab Q6H PRN PO .MOD PAIN 4- 6; Start 07/10/18 at 17:30 Morphine Sulfate (morphine) 2 mg Q4H PRN IV .SEVERE PAIN 7-10; Start 07/10/18 at 17:30 Docusate Sodium (Colace) 100 mg Q12H PRN PO .CONSTIPATION; Start 07/10/18 at 17:30 Magnesium Hydroxide (Milk Of Mag) 30 ml DAILY PRN PO .CONSTIPATION; Start 07/10/18 at 17:30 Lorazepam (Ativan) 0.5 mg Q6H PRN IV ANXIETY; Start 07/10/18 at 17:30 Albuterol/ Ipratropium (Duoneb) 3 ml Q4H RESP THERAPY PRN HHN SHORTNESS OF BREATH; Start 07/10/18 at 17:30 Hydralazine HCl (Apresoline) 10 mg Q6H PRN IV ELEVATED BLOOD PRESSURE; Start 07/10/18 at 17:30 Nitroglycerin (Nitroglycerin (Sl Tab) 0.4 Mg) 1 tab Q5M PRN SL ANGINA; Start 07/10/18 at 17:30 Atorvastatin Calcium (Lipitor) 40 mg QHS PO Last administered on 07/11/18 20:08; Admin Dose 40 MG; Start 07/10/18 at 21:00 Clopidogrel Bisulfate (plaVIX) 75 mg DAILY PO Last administered on 07/12/18 08:33; Admin Dose 75 MG; Start 07/11/18 at 09:00 Dutasteride (Avodart) 0.5 mg DAILY PO Last administered on 07/12/18 08:34; Admin Dose 0.5 MG; Start 07/11/18 at 09:00 Tamsulosin HCl (Flomax) 0.4 mg HS PO Last administered on 07/11/18 20:08; Admin Dose 0.4 MG; Start 07/10/18 at 21:00 Metoprolol Succinate (Toprol Xl) 25 mg BID PO Last administered on 07/12/18 08:34; Admin Dose 25 MG; Start 07/11/18 at 21:00 MAGDA ARIAS MD Jul 12, 2018 18:22
[2018-07-12] MEDS: ATORVASTATIN 40 MG TAB PO SCH (20:25)
[2018-07-12] MEDS: TAMSULOSIN (SR) 0.4 MG CAP PO SCH (20:25)
--- NOTE | 2018-07-12 21:54 | CONS ---
Assessment/Plan Assessment/Plan Assessment/Plan (Daily) This is a 83 y/o male with pmh of HTN, HLD, SSS and pacer The pt has Bigemany has tried medication has failed The pt will need an ablation Will try to transfer the pt for the ablation otherwise, will discharge him and schedule him as outpt. Consultation Date/Type/Reason Admit Date/Time Jul 10, 2018 at 15:22 Type of Consult Cardiology Requesting Provider: KENNEDI CHAMBERS MD Date/Time of Note DATE: 07/12/18 TIME: 21:51 Hx of Present Illness This is a 83 y/o male with pmh of SSS and pacer (biotronik) Who presented with weakness has constant bigemany called to see him for ablation will try to transfer him for ablation Past Medical History Home Meds Reported Medications Atorvastatin* (Atorvastatin*) 40 Mg Tablet, 40 MG PO QHS, #30 TAB 07/10/18 Tamsulosin Hcl* (Tamsulosin Hcl*) 0.4 Mg Cap.er.24h, 0.4 MG PO HS, CAP 07/10/18 Olmesartan Medoxomil (Benicar) 40 Mg Tablet, 40 MG PO DAILY, #30 TAB 07/10/18 Amiodarone Hcl* (Amiodarone Hcl*) 100 Mg Tablet, 100 MG PO DAILY, #30 TAB 07/10/18 Clopidogrel Bisulfate* (Clopidogrel Bisulfate*) 75 Mg Tablet, 75 MG PO DAILY, #30 TAB 07/10/18 Dutasteride* (Avodart*) 0.5 Mg Capsule, 0.5 MG PO DAILY, CAP 07/10/18 Discontinued Reported Medications Dutasteride* (Avodart*) 0.5 Mg Capsule, 0.5 MG PO DAILY, CAP 01/14/18 Tamsulosin Hcl* (Tamsulosin Hcl*) 0.4 Mg Cap.er.24h, 0.4 MG PO HS, CAP 01/14/18 Clopidogrel Bisulfate* (Clopidogrel Bisulfate*) 75 Mg Tablet, 75 MG PO DAILY, #30 TAB 01/14/18 Olmesartan Medoxomil (Benicar) 40 Mg Tablet, 40 MG PO DAILY, #30 TAB 01/14/18 Atorvastatin* (Atorvastatin*) 40 Mg Tablet, 40 MG PO QHS, #30 TAB 01/14/18 Medications Current Medications IV Flush (NS 3 ml) 3 ml PER PROTOCOL IV ; Start 07/10/18 at 17:30 Ondansetron HCl (Zofran Inj) 4 mg Q6H PRN IV NAUSEA/VOMITING Last administered on 07/12/18at 10:54; Admin Dose 4 MG; Start 07/10/18 at 17:30 Acetaminophen (Tylenol Tab) 650 mg Q6H PRN PO .PAIN 1-3 OR TEMP; Start 07/10/18 at 17:30 Acetaminophen/ Hydrocodone Bitart ([place] (5/325)) 1 tab Q6H PRN PO .MOD PAIN 4- 6; Start 07/10/18 at 17:30 Morphine Sulfate (morphine) 2 mg Q4H PRN IV .SEVERE PAIN 7-10; Start 07/10/18 at 17:30 Docusate Sodium (Colace) 100 mg Q12H PRN PO .CONSTIPATION; Start 07/10/18 at 17:30 Magnesium Hydroxide (Milk Of Mag) 30 ml DAILY PRN PO .CONSTIPATION; Start 07/10/18 at 17:30 Lorazepam (Ativan) 0.5 mg Q6H PRN IV ANXIETY; Start 07/10/18 at 17:30 Albuterol/ Ipratropium (Duoneb) 3 ml Q4H RESP THERAPY PRN HHN SHORTNESS OF BREATH; Start 07/10/18 at 17:30 Hydralazine HCl (Apresoline) 10 mg Q6H PRN IV ELEVATED BLOOD PRESSURE; Start 07/10/18 at 17:30 Nitroglycerin (Nitroglycerin (Sl Tab) 0.4 Mg) 1 tab Q5M PRN SL ANGINA; Start 07/10/18 at 17:30 Atorvastatin Calcium (Lipitor) 40 mg QHS PO Last administered on 07/12/18at 20:25; Admin Dose 40 MG; Start 07/10/18 at 21:00 Clopidogrel Bisulfate (plaVIX) 75 mg DAILY PO Last administered on 07/12/18at 08:33; Admin Dose 75 MG; Start 07/11/18 at 09:00 Dutasteride (Avodart) 0.5 mg DAILY PO Last administered on 07/12/18at 08:34; Ad min Dose 0.5 MG; Start 07/11/18 at 09:00 Tamsulosin HCl (Flomax) 0.4 mg HS PO Last administered on 07/12/18at 20:25; Admin Dose 0.4 MG; Start 07/10/18 at 21:00 Metoprolol Succinate (Toprol Xl) 25 mg BID PO Last administered on 07/12/18at 20:26; Admin Dose 25 MG; Start 07/11/18 at 21:00 Allergies: Coded Allergies: No Known Allergy (Unverified , 07/10/18) Social History Smoking Status: Never smoker Exam/Review of Systems Vital Signs Vitals Vital Signs Date Temp Pulse Resp B/P (MAP) Pulse Ox O2 O2 Flow FiO2 Time Delivery Rate 07/12/18 67 20:00 07/12/18 98.0 18 140/80 93 19:47 (100) 07/12/18 Room Air 04:00 07/11/18 21 22:11 07/11/18 2.0 18:30 Intake and Output 07/11/18 07/11/18 07/12/18 1515:00 23:00 07:00 IntakeIntake Total 1142.86 ml 966.62 ml BalanceBalance 1142.86 ml 966.62 ml Labs Result Diagram: 07/12/18 0605 07/12/18 0605 Results 24hrs Laboratory Tests Test 07/12/18 06:05 White Blood Count 4.8 Red Blood Count 4.24 L Hemoglobin 13.4 L Hematocrit 38.6 L Mean Corpuscular Volume 91.0 Mean Corpuscular Hemoglobin 31.6 Mean Corpuscular Hemoglobin Concent 34.7 Red Cell Distribution Width 12.5 Platelet Count 202 Mean Platelet Volume 9.1 Immature Granulocytes % 0.200 Neutrophils % 60.9 Lymphocytes % 19.1 Monocytes % 12.5 H Eosinophils % 6.7 Basophils % 0.6 Nucleated Red Blood Cells % 0.0 Immature Granulocytes # 0.010 Neutrophils # 2.9 Lymphocytes # 0.9 Monocytes # 0.6 Eosinophils # 0.3 Basophils # 0.0 Nucleated Red Blood Cells # 0.0 Sodium Level 129 L Potassium Level 4.0 Chloride Level 96 L Carbon Dioxide Level 25 Anion Gap 8 Blood Urea Nitrogen 17 Creatinine 0.73 Est Glomerular Filtrat Rate mL/min Glucose Level 109 Calcium Level 8.8 Magnesium Level 2.1 Total Bilirubin 1.5 H Direct Bilirubin 0.00 Indirect Bilirubin 1.5 H Aspartate Amino Transf (AST/SGOT) 23 Alanine Aminotransferase (ALT/SGPT) 19 Alkaline Phosphatase 63 Total Protein 6.2 Albumin 3.4 Globulin 2.80 Albumin/Globulin Ratio 1.21 Medications Medications Current Medications IV Flush (NS 3 ml) 3 ml PER PROTOCOL IV ; Start 07/10/18 at 17:30 Ondansetron HCl (Zofran Inj) 4 mg Q6H PRN IV NAUSEA/VOMITING Last administered on 07/12/18at 10:54; Admin Dose 4 MG; Start 07/10/18 at 17:30 Acetaminophen (Tylenol Tab) 650 mg Q6H PRN PO .PAIN 1-3 OR TEMP; Start 07/10/18 at 17:30 Acetaminophen/ Hydrocodone Bitart ([place] (5/325)) 1 tab Q6H PRN PO .MOD PAIN 4- 6; Start 07/10/18 at 17:30 Morphine Sulfate (morphine) 2 mg Q4H PRN IV .SEVERE PAIN 7-10; Start 07/10/18 at 17:30 Docusate Sodium (Colace) 100 mg Q12H PRN PO .CONSTIPATION; Start 07/10/18 at 17:30 Magnesium Hydroxide (Milk Of Mag) 30 ml DAILY PRN PO .CONSTIPATION; Start 06/13 at 17:30 Lorazepam (Ativan) 0.5 mg Q6H PRN IV ANXIETY; Start 07/10/18 at 17:30 Albuterol/ Ipratropium (Duoneb) 3 ml Q4H RESP THERAPY PRN HHN SHORTNESS OF BREATH; Start 07/10/18 at 17:30 Hydralazine HCl (Apresoline) 10 mg Q6H PRN IV ELEVATED BLOOD PRESSURE; Start 07/10/18 at 17:30 Nitroglycerin (Nitroglycerin (Sl Tab) 0.4 Mg) 1 tab Q5M PRN SL ANGINA; Start 07/10/18 at 17:30 Atorvastatin Calcium (Lipitor) 40 mg QHS PO Last administered on 07/12/18at 20:25; Admin Dose 40 MG; Start 07/10/18 at 21:00 Clopidogrel Bisulfate (plaVIX) 75 mg DAILY PO Last administered on 07/12/18at 08:33; Admin Dose 75 MG; Start 07/11/18 at 09:00 Dutasteride (Avodart) 0.5 mg DAILY PO Last administered on 07/12/18at 08:34; Admin Dose 0.5 MG; Start 07/11/18 at 09:00 Tamsulosin HCl (Flomax) 0.4 mg HS PO Last administered on 07/12/18at 20:25; Admin Dose 0.4 MG; Start 07/10/18 at 21:00 Metoprolol Succinate (Toprol Xl) 25 mg BID PO Last administered on 07/12/18at 20:26; Admin Dose 25 MG; Start 07/11/18 at 21:00 LAZARO VALERIO MD Jul 12, 2018 21:54
[2018-07-13] VITALS (12 sets, daily range): BP systolic 104–123; BP diastolic 58–74; PULSE 54–77; RESP 18
[2018-07-13] MEDS: CLOPIDOGREL 75 MG TAB PO SCH (08:31)
[2018-07-13] MEDS: METOPROLOL (XL) 25 MG TAB PO SCH ×2 (08:32→21:20)
[2018-07-13] MEDS: DUTASTERIDE 0.5 MG CAP PO SCH (13:06)
--- NOTE | 2018-07-13 14:52 | CONS ---
Consult Date/Type/Reason Admit Date/Time Jul 12, 2018 at 07:10 Initial Consult Date 07/11/18 Requesting Provider: KENNEDI CHAMBERS MD Date/Time of Note DATE: 07/13/18 TIME: 14:47 Subjective Cardiology follow-up progress note Subjective Discussed with essentially patient my patient is accompanied dizziness intermittently but rhythm reviewed showed much improvement less frequent PVCs. No chest migration or palpitation. Electrophysiology consult plan is appreciated. Discussed with Dr. Francisco. Patient was recommended to undergo ablation however apparently spoken to the family including son and they have refused at the moment. Objective: General: no acute distress HEENT: NC/AT. pupils are equal. round. NECK: NO JVD. no stridor. CV: RRR. systolic murmur; no gallop or rubs. PULM: no wheezing or rhonchi. GI: SOFT, NT, ND, no rebound or guarding Extremity: trace B/L LE edema. no clubbing. neuro: awake and alert, OX3. Psych: calm and pleasant rectal: deferred : normal Objective Vitals Vital Signs Date Temp Pulse Resp B/P (MAP) Pulse Ox O2 O2 Flow FiO2 Time Delivery Rate 07/13/18 61 12:01 07/13/18 97.4 18 104/64 94 Room Air 11:13 (77) 07/11/18 21 22:11 07/11/18 2.0 18:30 Intake and Output 07/12/18 07/12/18 07/13/18 1515:00 23:00 07:00 IntakeIntake Total 800 ml 780 ml OutputOutput Total 975 ml BalanceBalance -175 ml 780 ml Results/Medications Result Diagram: 07/13/18 0612 07/13/18 0612 Results 24 hrs Laboratory Tests Test 07/13/18 06:12 White Blood Count 5.0 Red Blood Count 4.21 L Hemoglobin 13.3 L Hematocrit 37.9 L Mean Corpuscular Volume 90.0 Mean Corpuscular Hemoglobin 31.6 Mean Corpuscular Hemoglobin Concent 35.1 Red Cell Distribution Width 12.5 Platelet Count 212 Mean Platelet Volume 9.2 Immature Granulocytes % 0.400 Neutrophils % 65.0 Lymphocytes % 12.4 L Monocytes % 14.8 H Eosinophils % 6.8 Basophils % 0.6 Nucleated Red Blood Cells % 0.0 Immature Granulocytes # 0.020 Neutrophils # 3.2 Lymphocytes # 0.6 L Monocytes # 0.7 Eosinophils # 0.3 Basophils # 0.0 Nucleated Red Blood Cells # 0.0 Sodium Level 125 L Potassium Level 4.1 Chloride Level 93 L Carbon Dioxide Level 25 Anion Gap 7 Blood Urea Nitrogen 15 Creatinine 0.72 Est Glomerular Filtrat Rate mL/min Glucose Level 102 Calcium Level 8.8 Home Meds Reported Medications Atorvastatin* (Atorvastatin*) 40 Mg Tablet, 40 MG PO QHS, #30 TAB 07/10/18 Tamsulosin Hcl* (Tamsulosin Hcl*) 0.4 Mg Cap.er.24h, 0.4 MG PO HS, CAP 07/10/18 Olmesartan Medoxomil (Benicar) 40 Mg Tablet, 40 MG PO DAILY, #30 TAB 07/10/18 Amiodarone Hcl* (Amiodarone Hcl*) 100 Mg Tablet, 100 MG PO DAILY, #30 TAB 07/10/18 Clopidogrel Bisulfate* (Clopidogrel Bisulfate*) 75 Mg Tablet, 75 MG PO DAILY, #30 TAB 07/10/18 Dutasteride* (Avodart*) 0.5 Mg Capsule, 0.5 MG PO DAILY, CAP 07/10/18 Discontinued Reported Medications Dutasteride* (Avodart*) 0.5 Mg Capsule, 0.5 MG PO DAILY, CAP 01/14/18 Tamsulosin Hcl* (Tamsulosin Hcl*) 0.4 Mg Cap.er.24h, 0.4 MG PO HS, CAP 01/14/18 Clopidogrel Bisulfate* (Clopidogrel Bisulfate*) 75 Mg Tablet, 75 MG PO DAILY, #30 TAB 01/14/18 Olmesartan Medoxomil (Benicar) 40 Mg Tablet, 40 MG PO DAILY, #30 TAB 01/14/18 Atorvastatin* (Atorvastatin*) 40 Mg Tablet, 40 MG PO QHS, #30 TAB 01/14/18 Medications Current Medications IV Flush (NS 3 ml) 3 ml PER PROTOCOL IV ; Start 07/10/18 at 17:30 Ondansetron HCl (Zofran Inj) 4 mg Q6H PRN IV NAUSEA/VOMITING Last administered on 07/12/18at 10:54; Admin Dose 4 MG; Start 07/10/18 at 17:30 Acetaminophen (Tylenol Tab) 650 mg Q6H PRN PO .PAIN 1-3 OR TEMP; Start 07/10/18 at 17:30 Acetaminophen/ Hydrocodone Bitart ([place] (5/325)) 1 tab Q6H PRN PO .MOD PAIN 4- 6; Start 07/10/18 at 17:30 Morphine Sulfate (morphine) 2 mg Q4H PRN IV .SEVERE PAIN 7-10; Start 07/10/18 at 17:30 Docusate Sodium (Colace) 100 mg Q12H PRN PO .CONSTIPATION; Start 07/10/18 at 17:30 Magnesium Hydroxide (Milk Of Mag) 30 ml DAILY PRN PO .CONSTIPATION; Start 07/10/18 at 17:30 Lorazepam (Ativan) 0.5 mg Q6H PRN IV ANXIETY; Start 07/10/18 at 17:30 Albuterol/ Ipratropium (Duoneb) 3 ml Q4H RESP THERAPY PRN HHN SHORTNESS OF BREATH; Start 07/10/18 at 17:30 Hydralazine HCl (Apresoline) 10 mg Q6H PRN IV ELEVATED BLOOD PRESSURE; Start 07/10/18 at 17:30 Nitroglycerin (Nitroglycerin (Sl Tab) 0.4 Mg) 1 tab Q5M PRN SL ANGINA; Start 07/10/18 at 17:30 Atorvastatin Calcium (Lipitor) 40 mg QHS PO Last administered on 07/12/18 20:25; Admin Dose 40 MG; Start 07/10/18 at 21:00 Clopidogrel Bisulfate (plaVIX) 75 mg DAILY PO Last administered on 07/13/18 08:31; Admin Dose 75 MG; Start 07/11/18 at 09:00 Dutasteride (Avodart) 0.5 mg DAILY PO Last administered on 07/13/18 13:06; Admin Dose 0.5 MG; Start 07/11/18 at 09:00 Tamsulosin HCl (Flomax) 0.4 mg HS PO Last administered on 07/12/18 20:25; Admin Dose 0.4 MG; Start 07/10/18 at 21:00 Metoprolol Succinate (Toprol Xl) 25 mg BID PO Last administered on 07/13/18 08:32; Admin Dose 25 MG; Start 07/11/18 at 21:00 Assessment/Plan Hospital Course (Demo Recall) dizziness symptomatic frequent PVC HTN Dyslipidemia BPH SSS S/ P PPM Hyponatremia REC: We will monitor off the amiodarone toprol xl tele monitoring echo correct lytes including Mg K Correction of hyponatremia as per internal medicine outptcardiology 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
--- NOTE | 2018-07-13 15:00 | PN ---
Date/Time of Note Date/Time of Note DATE: 07/13/18 TIME: 14:59 Assessment/Plan VTE Prophylaxis Risk score (from Ns)>0 risk: 5 SCD applied (from Ns): Yes Pharmacological prophylaxis: NA/contraindicated Pharm contraindication: low risk/ambulating Lines/Catheters IV Catheter Type (from [facility]): Saline Lock Assessment/Plan Assessment/Plan 83-year-old male with weakness with signs of bradycardia and ectopic beats, possibly causing his pacemaker to not function properly, prior history of pacemaker placement and hypertension. 1. Weakness- likely secondary to patient's bradycardia as his pacemaker appears not to be functioning appropriately secondary to ectopic beats. - Again holding his home Bystolic and amiodarone which the patient apparently was taking at least a week prior to this admission. - monitor heart rate, follow-up recommendations from cardiology team - For now, continue Plavix. - PT and OT eval's have been ordered since yesterday, follow-up official consults of these 2. high cholesterol - Continue Lipitor. 3. History of prostate issues. Continue Flomax. 4. Deep venous thrombosis prophylaxis, sequential compression devices. 5. Hypertension. Continue metoprolol. 6. Hyponatremia - Na has dropped now to 125 - Will do volume challenge with normal saline bolus. If no response, will call renal. Result Diagram: 07/13/18 0612 07/13/18 0612 Subjective 24 Hr Interval Summary Free Text/Dictation No acute overnight events. Patient feeling well, ambulating. Exam/Review of Systems Exam Vitals Vital Signs Date Temp Pulse Resp B/P (MAP) Pulse Ox O2 O2 Flow FiO2 Time Delivery Rate 07/13/18 61 12:01 07/13/18 97.4 18 104/64 94 Room Air 11:13 (77) 07/11/18 21 22:11 07/11/18 2.0 18:30 Intake and Output 07/12/18 07/12/18 07/13/18 1515:00 23:00 07:00 IntakeIntake Total 800 ml 780 ml OutputOutput Total 975 ml BalanceBalance -175 ml 780 ml Exam GENERAL: lying in bed. No acute distress. HEENT: Pupils equal, round, react to light. Extraocular muscles intact. NECK: Supple, no thyromegaly. LUNGS: Slightly distant breath sounds bilaterally. CARDIOVASCULAR: Slightly bradycardic heart rate. No rubs or gallops. ABDOMEN: Soft, nontender, nondistended. Normal bowel sounds. No rebound or guarding. MUSCULOSKELETAL: No lower extremity edema bilaterally. Results Results 24hrs Laboratory Tests Test 07/13/18 06:12 White Blood Count 5.0 Red Blood Count 4.21 L Hemoglobin 13.3 L Hematocrit 37.9 L Mean Corpuscular Volume 90.0 Mean Corpuscular Hemoglobin 31.6 Mean Corpuscular Hemoglobin Concent 35.1 Red Cell Distribution Width 12.5 Platelet Count 212 Mean Platelet Volume 9.2 Immature Granulocytes % 0.400 Neutrophils % 65.0 Lymphocytes % 12.4 L Monocytes % 14.8 H Eosinophils % 6.8 Basophils % 0.6 Nucleated Red Blood Cells % 0.0 Immature Granulocytes # 0.020 Neutrophils # 3.2 Lymphocytes # 0.6 L Monocytes # 0.7 Eosinophils # 0.3 Basophils # 0.0 Nucleated Red Blood Cells # 0.0 Sodium Level 125 L Potassium Level 4.1 Chloride Level 93 L Carbon Dioxide Level 25 Anion Gap 7 Blood Urea Nitrogen 15 Creatinine 0.72 Est Glomerular Filtrat Rate mL/min Glucose Level 102 Calcium Level 8.8 Medications Medication Current Medications IV Flush (NS 3 ml) 3 ml PER PROTOCOL IV ; Start 07/10/18 at 17:30 Ondansetron HCl (Zofran Inj) 4 mg Q6H PRN IV NAUSEA/VOMITING Last administered on 07/12/18at 10:54; Admin Dose 4 MG; Start 07/10/18 at 17:30 Acetaminophen (Tylenol Tab) 650 mg Q6H PRN PO .PAIN 1-3 OR TEMP; Start 07/10/18 at 17:30 Acetaminophen/ Hydrocodone Bitart ([place] (5/325)) 1 tab Q6H PRN PO .MOD PAIN 4- 6; Start 07/10/18 at 17:30 Morphine Sulfate (morphine) 2 mg Q4H PRN IV .SEVERE PAIN 7-10; Start 07/10/18 at 17:30 Docusate Sodium (Colace) 100 mg Q12H PRN PO .CONSTIPATION; Start 07/10/18 at 17:30 Magnesium Hydroxide (Milk Of Mag) 30 ml DAILY PRN PO .CONSTIPATION; Start 07/10/18 at 17:30 Lorazepam (Ativan) 0.5 mg Q6H PRN IV ANXIETY; Start 07/10/18 at 17:30 Albuterol/ Ipratropium (Duoneb) 3 ml Q4H RESP THERAPY PRN HHN SHORTNESS OF BREATH; Start 07/10/18 at 17:30 Hydralazine HCl (Apresoline) 10 mg Q6H PRN IV ELEVATED BLOOD PRESSURE; Start 07/10/18 at 17:30 Nitroglycerin (Nitroglycerin (Sl Tab) 0.4 Mg) 1 tab Q5M PRN SL ANGINA; Start 07/10/18 at 17:30 Atorvastatin Calcium (Lipitor) 40 mg QHS PO Last administered on 07/12/18at 20:25; Admin Dose 40 MG; Start 07/10/18 at 21:00 Clopidogrel Bisulfate (plaVIX) 75 mg DAILY PO Last administered on 07/13/18at 08:31; Admin Dose 75 MG; Start 07/11/18 at 09:00 Dutasteride (Avodart) 0.5 mg DAILY PO Last administered on 07/13/18at 13:06; Admin Dose 0.5 MG; Start 07/11/18 at 09:00 Tamsulosin HCl (Flomax) 0.4 mg HS PO Last administered on 07/12/18at 20:25; Admin Dose 0.4 MG; Start 07/10/18 at 21:00 Metoprolol Succinate (Toprol Xl) 25 mg BID PO Last administered on 07/13/18at 08:32; Admin Dose 25 MG; Start 07/11/18 at 21:00 Sodium Chloride 1,000 ml @ 1,000 mls/hr Q1H ONCE IV ; Start 07/13/18 at 16:00; Stop 07/13/18 at 16:59 MAGDA ARIAS MD Jul 13, 2018 15:00
[2018-07-13] MEDS ORDERED: SOD CHLORIDE 0.9% 1,000 ML IV ONE (16:00)
--- NOTE | 2018-07-13 17:18 | PN ---
DATE: 07/12/2018 SUBJECTIVE: I discussed with the staff. Rhythm was reviewed. The patient with frequent PVCs despit e amiodarone drip. The patient and family intermittently has been refusing amiodarone, would agree t o have it done. He still complains of dizziness. MEDICATIONS: Reviewed. PHYSICAL EXAMINATION: VITAL SIGNS: Temperature 98.3, heart rate of 63, blood pressure 125/76, respirations 18, satting 93% . HEENT: Normocephalic, atraumatic. No acute distress. Eyes: Pupils are equal. CARDIOVASCULAR: Regular rate and rhythm, soft murmur. PULMONARY: Anteriorly with no wheezes. GASTROINTESTINAL: Soft, nontender. EXTREMITIES: Trivial edema. NEUROLOGIC: Awake, follows commands. PSYCHIATRIC: Appeared to be calm. LABORATORY DATA: WBC of 4.8, hemoglobin 13.4, platelets 202. Sodium of 129, potassium of 4, BUN of 17, creatinine of 0.73, glucose of 109. Mag is 2.1. ASSESSMENT AND PLAN: 1. Frequent premature ventricular contractions and bigeminy, appeared to be symptomatic. 2. Hypertension. 3. Hyponatremia. 4. Dyslipidemia. 5. Ventricular paced. No sick sinus syndrome, on permanent pacemaker. RECOMMENDATIONS: We will ask for electrophysiology consult. Dr. Nolan Tang has been consulted t o consider ablation. Completed amiodarone. Will monitor on telemetry. Dictated By: KENNEDI CHAMBERS MD AV/REBECA Conf#: [id number] DID#: [id number] CC: RODY FOUNTAIN;*End*
[2018-07-13] MEDS: TAMSULOSIN (SR) 0.4 MG CAP PO SCH (21:19)
[2018-07-13] MEDS: ATORVASTATIN 40 MG TAB PO SCH (21:20)
[2018-07-14] VITALS (9 sets, daily range): BP systolic 115–123; BP diastolic 55–65; PULSE 45–72; RESP 18–20
--- NOTE | 2018-07-14 08:12 | CONS ---
Consult Date/Type/Reason Admit Date/Time Jul 12, 2018 at 07:10 Initial Consult Date 07/11/18 Requesting Provider: KENNEDI CHAMBERS MD Date/Time of Note DATE: 07/14/18 TIME: 08:10 Subjective Cardiology follow-up progress note Subjective Discussed with staff. pt states he is feeling better today . No chest pain or palpitation. tele was reviewed still with eladia intermittently Electrophysiology consult plan is appreciated. Objective: General: no acute distress HEENT: NC/AT. pupils are equal. round. NECK: NO JVD. no stridor. CV: RRR. systolic murmur; no gallop or rubs. PULM: no wheezing or rhonchi. GI: SOFT, NT, ND, no rebound or guarding Extremity: trace B/L LE edema. no clubbing. neuro: awake and alert, OX3. Psych: calm and pleasant rectal: deferred : normal. ECHO Abnormal rhythm throughout exam, however, overall normal left ventricular systolic function. Normal left ventricular cavity size. Normal left ventricular wall thickness. Ejection fraction is visually estimated at 60-65 %. Tissue Doppler/Mitral Doppler indices are consistent with impaired relaxation (Stage I diastolic dysfunction). E/E'= 9. Mild mitral annular calcification. Mild mitral valve regurgitation. Aortic cusps appear mildly calcified. Trileaflet aortic valve. Mild to moderate aortic valve regurgitation. Normal appearance and function of the tricuspid valve with trace physiologic regurgitation. Estimated peak PA systolic pressure 37 mmHg. g. Objective Vitals Vital Signs Date Temp Pulse Resp B/P (MAP) Pulse Ox O2 O2 Flow FiO2 Time Delivery Rate 07/14/18 72 08:01 07/14/18 98.6 20 120/58 94 Room Air 07:58 (78) 07/11/18 21 22:11 07/11/18 2.0 18:30 Intake and Output 07/13/18 07/13/18 07/14/18 1414:59 22:59 06:59 IntakeIntake Total 600 ml 1500 ml OutputOutput Total 650 ml BalanceBalance 600 ml 850 ml Results/Medications Result Diagram: 07/14/18 0621 07/14/18 0621 Results 24 hrs Laboratory Tests Test 07/13/18 17:46 07/14/18 06:21 Sodium Level 125 L 128 L Potassium Level 4.1 4.2 Chloride Level 92 L 98 Carbon Dioxide Level 24 24 Anion Gap 9 6 Blood Urea Nitrogen 15 14 Creatinine 0.69 0.72 Est Glomerular Filtrat Rate mL/min Glucose Level 92 92 Calcium Level 8.5 8.6 White Blood Count 4.9 Red Blood Count 4.16 L Hemoglobin 13.1 L Hematocrit 37.7 L Mean Corpuscular Volume 90.6 Mean Corpuscular Hemoglobin 31.5 Mean Corpuscular Hemoglobin Concent 34.7 Red Cell Distribution Width 12.3 Platelet Count 214 Mean Platelet Volume 8.9 Immature Granulocytes % 0.800 H Neutrophils % 59.8 Lymphocytes % 15.2 Monocytes % 15.7 H Eosinophils % 7.7 H Basophils % 0.8 Nucleated Red Blood Cells % 0.0 Immature Granulocytes # 0.040 H Neutrophils # 2.9 Lymphocytes # 0.8 Monocytes # 0.8 Eosinophils # 0.4 Basophils # 0.0 Nucleated Red Blood Cells # 0.0 Home Meds Reported Medications Atorvastatin* (Atorvastatin*) 40 Mg Tablet, 40 MG PO QHS, #30 TAB 07/10/18 Tamsulosin Hcl* (Tamsulosin Hcl*) 0.4 Mg Cap.er.24h, 0.4 MG PO HS, CAP 07/10/18 Olmesartan Medoxomil (Benicar) 40 Mg Tablet, 40 MG PO DAILY, #30 TAB 07/10/18 Amiodarone Hcl* (Amiodarone Hcl*) 100 Mg Tablet, 100 MG PO DAILY, #30 TAB 07/10/18 Clopidogrel Bisulfate* (Clopidogrel Bisulfate*) 75 Mg Tablet, 75 MG PO DAILY, #30 TAB 07/10/18 Dutasteride* (Avodart*) 0.5 Mg Capsule, 0.5 MG PO DAILY, CAP 07/10/18 Discontinued Reported Medications Dutasteride* (Avodart*) 0.5 Mg Capsule, 0.5 MG PO DAILY, CAP 01/14/18 Tamsulosin Hcl* (Tamsulosin Hcl*) 0.4 Mg Cap.er.24h, 0.4 MG PO HS, CAP 01/14/18 Clopidogrel Bisulfate* (Clopidogrel Bisulfate*) 75 Mg Tablet, 75 MG PO DAILY, #30 TAB 01/14/18 Olmesartan Medoxomil (Benicar) 40 Mg Tablet, 40 MG PO DAILY, #30 TAB 01/14/18 Atorvastatin* (Atorvastatin*) 40 Mg Tablet, 40 MG PO QHS, #30 TAB 01/14/18 Medications Current Medications IV Flush (NS 3 ml) 3 ml PER PROTOCOL IV ; Start 07/10/18 at 17:30 Ondansetron HCl (Zofran Inj) 4 mg Q6H PRN IV NAUSEA/VOMITING Last administered on 07/12/18at 10:54; Admin Dose 4 MG; Start 07/10/18 at 17:30 Acetaminophen (Tylenol Tab) 650 mg Q6H PRN PO .PAIN 1-3 OR TEMP; Start 07/10/18 at 17:30 Acetaminophen/ Hydrocodone Bitart ([place] (5/325)) 1 tab Q6H PRN PO .MOD PAIN 4- 6; Start 07/10/18 at 17:30 Morphine Sulfate (morphine) 2 mg Q4H PRN IV .SEVERE PAIN 7-10; Start 07/10/18 at 17:30 Docusate Sodium (Colace) 100 mg Q12H PRN PO .CONSTIPATION; Start 07/10/18 at 17:30 Magnesium Hydroxide (Milk Of Mag) 30 ml DAILY PRN PO .CONSTIPATION; Start 07/10/18 at 17:30 Lorazepam (Ativan) 0.5 mg Q6H PRN IV ANXIETY; Start 07/10/18 at 17:30 Albuterol/ Ipratropium (Duoneb) 3 ml Q4H RESP THERAPY PRN HHN SHORTNESS OF DAVE ATH; Start 07/10/18 at 17:30 Hydralazine HCl (Apresoline) 10 mg Q6H PRN IV ELEVATED BLOOD PRESSURE; Start 07/10/18 at 17:30 Nitroglycerin (Nitroglycerin (Sl Tab) 0.4 Mg) 1 tab Q5M PRN SL ANGINA; Start 07/10/18 at 17:30 Atorvastatin Calcium (Lipitor) 40 mg QHS PO Last administered on 07/13/18at 21:2 0; Admin Dose 40 MG; Start 07/10/18 at 21:00 Clopidogrel Bisulfate (plaVIX) 75 mg DAILY PO Last administered on 07/13/18at 08:31; Admin Dose 75 MG; Start 07/11/18 at 09:00 Dutasteride (Avodart) 0.5 mg DAILY PO Last administered on 07/13/18at 13:06; Admin Dose 0.5 MG; Start 07/11/18 at 09:00 Tamsulosin HCl (Flomax) 0.4 mg HS PO Last administered on 07/13/18at 21:19; Admin Dose 0.4 MG; Start 07/10/18 at 21:00 Metoprolol Succinate (Toprol Xl) 25 mg BID PO Last administered on 07/13/18at 21:20; Admin Dose 25 MG; Start 07/11/18 at 21:00 Assessment/Plan Hospital Course (Demo Recall) dizziness symptomatic frequent PVC HTN Dyslipidemia BPH SSS S/ P PPM Hyponatremia REC: We will monitor off the amiodarone Cont toprol xl tele monitoring echo correct lytes including Mg K prn Correction of hyponatremia as per internal medicine outpt cardiology follow up with 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
[2018-07-14] MEDS: DUTASTERIDE 0.5 MG CAP PO SCH (08:36)
[2018-07-14] MEDS: CLOPIDOGREL 75 MG TAB PO SCH (08:37)
[2018-07-14] MEDS: METOPROLOL (XL) 25 MG TAB PO SCH (08:37)
--- NOTE | 2018-07-14 14:27 | PDOCDIS ---
Discharge Instructions DIAGNOSIS Discharge Diagnosis Frequent premature ventricular contractions and bigeminy, symptomatic CONDITION [id number] Patient Condition: [id number] Fair HOME CARE INSTRUCTIONS: [id number] Diet Instructions: [id number] Low Fat /Cholesterol ACTIVITY: [id number] Activity Restrictions: [id number] No Restrictions FOLLOW UP/APPOINTMENTS Follow-up Plan 1. Take all medications as prescribed. 2. See Dr. Kim in clinic within one week to check your sodium levels. 3. See Dr. Schaefer in clinic as scheduled. 4. See your primary care doctor in 1-2 weeks. 5. Return to the emergency room if you develop pressure-like chest pain that does not resolve with rest. MAGDA ARIAS MD Jul 14, 2018 14:27
--- NOTE | 2018-07-14 18:07 | DS ---
Date/Time of Note Date/Time of Note DATE: 07/14/18 TIME: 18:02 Discharge Summary Admission/Discharge Info Admit Date/Time Jul 10, 2018 Discharge Date/Time Jul 14, 2018 Discharge Diagnosis Frequent premature ventricular contractions and bigeminy, symptomatic Patient Condition: Good Consults Dr. Valle, cardiology Dr. Kim, nephrology Procedures None Hx of Present Illness CHIEF COMPLAINT: Weakness and bradycardia. HISTORY OF PRESENT ILLNESS: An 83-year-old male with past medical history of hypertension, pacemaker placement about 3 years ago, has been having weakness symptoms. Symptoms have been going on for the last few days. The patient denies any chest pain or shortness of breath, no fevers or chills or nausea, vomiting, no upper or lower GI bleeding, no diarrhea or constipation. Apparently, the patient was recently put on either amiodarone or amlodipine as an outpatient and he has been taking that for the last week that was prescribed by his heart doctor. Since that time, he has been feeling weak. Apparently he had been taking a beta cooper before that for the last 2 months, but his heart doctor, according to the family, had stopped that medicine because the patient had been having a low blood pressure and possible low heart rate at that time. When the patient came in to the ER today, he was found with heart rate in the 30s and the ER called the pacemaker people to come interrogate the pacemaker. They found that the pacemaker appears to be functioning normally, but the patient is having frequent ectopic beats, which is causing the pacemaker to not function appropriately. PAST MEDICAL HISTORY: As above. ALLERGIES: NO KNOWN DRUG ALLERGIES. HOME MEDICATIONS: 1. Again, he has been on amlodipine or amiodarone as an outpatient. 2. Also, on atorvastatin 40 mg at bedtime. 3. Plavix 75 mg daily. 4. Flomax 0.4 mg at bedtime. 5. Avodart 0.5 mg daily. PAST SURGICAL HISTORY: Pacemaker placement in the past, cataract surgery in the past. SOCIAL HISTORY: Negative for smoking , drinking, or IV drug abuse. FAMILY HISTORY: Noncontributory. Hospital Course The patient was admitted to telemetry. He was started on amiodarone gtt by cardiology. He does continue to have very frequent ectopic beats on telemetry which are probably the cause of his symptoms. These are present on and off of the amio gtt. Will plan for outpatient evaluation and possibly ablation by EP. He also was found to be very hyponatremic; Na 131 on arrival dropped to 125 but was uptrending at time of discharge. He did not appear to be symptomatic from this. The cause is unknown; he is not on diuretics. He will be seen by Dr. Kim in the clinic but it does appear to be a chronic problem. At time of discharge patient was feeling well, slightly dizzy, but ambulating 80+ feet with physical therapy. Home Meds Reported Medications Atorvastatin* (Atorvastatin*) 40 Mg Tablet, 40 MG PO QHS, #30 TAB 07/10/18 Tamsulosin Hcl* (Tamsulosin Hcl*) 0.4 Mg Cap.er.24h, 0.4 MG PO HS, CAP 07/10/18 Olmesartan Medoxomil (Benicar) 40 Mg Tablet, 40 MG PO DAILY, #30 TAB 07/10/18 Clopidogrel Bisulfate* (Clopidogrel Bisulfate*) 75 Mg Tablet, 75 MG PO DAILY, #30 TAB 07/10/18 Dutasteride* (Avodart*) 0.5 Mg Capsule, 0.5 MG PO DAILY, CAP 07/10/18 Discontinued Reported Medications Amiodarone Hcl* (Amiodarone Hcl*) 100 Mg Tablet, 100 MG PO DAILY, #30 TAB 07/10/18 Dutasteride* (Avodart*) 0.5 Mg Capsule, 0.5 MG PO DAILY, CAP 01/14/18 Tamsulosin Hcl* (Tamsulosin Hcl*) 0.4 Mg Cap.er.24h, 0.4 MG PO HS, CAP 01/14/18 Clopidogrel Bisulfate* (Clopidogrel Bisulfate*) 75 Mg Tablet, 75 MG PO DAILY, #30 TAB 01/14/18 Olmesartan Medoxomil (Benicar) 40 Mg Tablet, 40 MG PO DAILY, #30 TAB 01/14/18 Atorvastatin* (Atorvastatin*) 40 Mg Tablet, 40 MG PO QHS, #30 TAB 01/14/18 Follow-up Plan 1. Take all medications as prescribed. 2. See Dr. Kim in clinic within one week to check your sodium levels. 3. See Dr. Schaefer in clinic as scheduled. 4. See your primary care doctor in 1-2 weeks. 5. Return to the emergency room if you develop pressure-like chest pain that does not resolve with rest. Primary Care Provider Not On Staff Doctor Time spent on discharge: > 30 minutes Pending Labs Laboratory Tests Test 07/14/18 06:21 07/14/18 11:20 07/14/18 12:16 07/14/18 16:16 White Blood 4.9 Count 10^3/ul (4.8-10 .8) Red Blood 4.16 Count 10^6/ul (4.70-6 .10) Hemoglobin 13.1 g/dl (14.0-18.0 ) Hematocrit 37.7 % (42.0-52.0) Mean 90.6 Corpuscular fl (82.0-101.0) Volume Mean 31.5 Corpuscular pg (29.0-33.0) Hemoglobin Mean 34.7 Corpuscular g/dl (32.0-37.0 Hemoglobin Conc ) ent Red Cell 12.3 Distribution % (11.5-14.5) Width Platelet Count 214 10^3/UL (140-41 5) Mean Platelet 8.9 Volume fl (7.4-10.4) Immature 0.800 Granulocytes % % (0.001-0.429) Neutrophils % 59.8 % (39.0-77.0) Lymphocytes % 15.2 % (15.0-51.0) Monocytes % 15.7 % (0.0-11.0) Eosinophils % 7.7 % (0.0-7.0) Basophils % 0.8 % (0.0-2.0) Nucleated Red 0.0 Blood Cells % /100WBC (0.0-0. 0) Immature 0.040 Granulocytes # 10^3/ul (0.0-0. 031) Neutrophils # 2.9 10^3/ul (1.6-7. 5) Lymphocytes # 0.8 10^3/ul (0.8-2. 9) Monocytes # 0.8 10^3/ul (0.3-0. 9) Eosinophils # 0.4 10^3/ul (0.0-0. 5) Basophils # 0.0 10^3/ul (0.0-0. 1) Nucleated Red 0.0 Blood Cells # 10^3/ul (0.0-0. 0) Sodium Level 128 127 127 mmol/L (135-144 mmol/L (135-14 mmol/L (135-14 ) 4) 4) Potassium 4.2 3.8 Level mmol/L (3.5-5.1 mmol/L (3.5-5. ) 1) Chloride Level 98 97 mmol/L (97-110) mmol/L (97-110 ) Carbon Dioxide 24 22 Level mmol/L (21-31) mmol/L (21-31) Anion Gap 6 (5-13) 8 (5-13) Blood Urea 14 mg/dl (7-20) 17 Nitrogen mg/dl (7-20) Creatinine 0.72 0.82 mg/dl (0.61-1.2 mg/dl (0.61-1. 4) 24) Est Glomerular mL/min (>60) mL/min (>60) Filtrat Rate mL/min Glucose Level 92 126 mg/dl (70-220) mg/dl (70-220) Uric Acid 1.7 mg/dl (3.1-7.9) Calcium Level 8.6 8.4 mg/dl (8.4-10.2 mg/dl (8.4-10. ) 2) Urine Color YELLOW (YELLOW ) Urine Clarity CLEAR (CLEAR) Urine pH 6.0 (5.0-9.0) Urine Specific 1.015 (1.003-1 [place] .030) Urine Ketones NEGATIVE mg/dL (NEGATIV E) Urine Nitrite NEGATIVE mg/dL (NEGATIV E) Urine NEGATIVE Bilirubin mg/dL (NEGATIV E) Urine NEGATIVE Urobilinogen mg/dL (NEGATIV E) Urine Leukocyte NEGATIVE Julien/u Esterase l Urine 13 /HPF (0-5) Microscopic RBC Urine 1 /HPF (0-5) Microscopic WBC Urine Mucus FEW /HPF (NONE SEEN) Urine 2+ Hemoglobin mg/dL (NEGATIV E) Urine 509 Osmolality mOsm/kg (250-1 200) Urine Random 112.40 Creatinine mg/dl (20-370) Urine Random 29 Sodium mmol/L (30-90) Urine Glucose 1+ mg/dL (NEGATIV E) Urine Total 8.0 Protein mg/dl (0.0-11. 9) MAGDA ARIAS MD Jul 14, 2018 18:07
--- NOTE | 2018-07-14 20:03 | CONS ---
DATE OF ADMISSION: 07/12/2018 DATE OF CONSULTATION: 07/14/2018 TYPE OF CONSULTATION: Nephrology. REASON FOR CONSULTATION: Hyponatremia. PHYSICIAN REQUESTING CONSULT: Sidney Tyson MD HISTORY OF PRESENT ILLNESS: This is an 83-year-old male with a past medical history of hypertension, history of arrhythmia, status post pacemaker, history of chronic hyponatremia with previous baseline sodium is 130 mEq per, who presents to [facility] emergency room with weakness. Patient st ates that his symptoms have been ongoing for the past few days prior to admission. He denied any evangelina st pain, shortness breath, no nausea or vomiting. Patient also was recently placed on amiodarone as an outpatient due to his underlying arrhythmia. In the emergency room, the patient was found to have heart rate in the 30s. The patient was subsequently admitted to telemetry. While on telemetry, the patient was seen by county manager, Dr. Valle. The patient's medications were adjusted with improvem ent of his underlying heart rate. In terms of the patient's sodium history, the patient has a history of hyponatremia longstanding. On admission, the patient has sodium 131, which decreased to 125 mEq. The patient's sodium level impro kinga to 128 mEq after being given IV hydration. Patient does admit to drinking copious amounts of marvin er. He denies any hemoptysis, hematemesis, hematochezia, any weakness or nausea or any seizure activ ity. PAST MEDICAL HISTORY: History of chronic hyponatremia, history of hypertension, history of arrhythmi a. PAST SURGICAL HISTORY: Status post pacemaker placement, status post cataract surgery. SOCIAL HISTORY: Does not drink or smoke. FAMILY HISTORY: No family history of kidney disease. MEDICATIONS: The patient has been reviewed. REVIEW OF SYSTEMS: A 14-point review of systems conducted. Pertinent positives stated in HPI, other spaulding negative. PHYSICAL EXAMINATION: VITAL SIGNS: Blood pressure is 115/55, respiration 18, pulse 60, temperature 97.6. HEENT: Head is normocephalic. NECK: Supple. HEART: Regular rate. LUNGS: Show diminished breath sounds at the base. ABDOMEN: Soft, nontender to palpation. No rebound or guarding. EXTREMITIES: Negative for clubbing, cyanosis, no edema. DERMATOLOGIC: No rashes. MUSCULOSKELETAL: No joint effusions. NEUROLOGIC: No change in exam. LABORATORY DATA: Shows a sodium of 129, phenol is less than 1%. Urine osmolarity of 509. ____. Ur ic acid 1.7. ASSESSMENT AND PLAN: This is an 83-year-old male who presents with: 1. Acute on chronic hyponatremia with previous baseline sodium is 130 mEq per liter per patient. Et iology of acute component may be secondary to hemodynamics, volume depletion. The patient does have a phenol less than 1% and elevated urine osmolarity, which can be seen in volume depletion. The aubrey ent's sodium levels have improved after being given a fluid challenge. Additionally, patient also do es have a low uric acid levels which can be seen with underlying SIADH. Therefore, the possibility o f underlying SIADH is a consideration. The patient was advised to minimize free water intake and to increase osmolar intake. We will continue to monitor serial sodium levels during the hospital course . If sodium levels do not improve, we will consider starting patient on demeclocycline and salt tabl ets. There is no indication for 3% sodium chloride at this time. 2. Weakness. Etiology secondary to bradycardia. The patient's symptoms have improved after underly ing bradycardia resolved. Continue to monitor. 3. Bradycardia might be secondary to amiodarone, improved. Continue to monitor. Follow up with Car diology. 4. Dyslipidemia. Continue statin therapy. 5. BPH. Continue Flomax. 6. Hypertension. Continue current blood pressure regimen. Thank you, Dr. Tyson, for this interesting consult. It will be a pleasure to follow patient with you throughout the hospital course. Dictated By: YARIEL AVENDANO/REBECA Conf#: [id number] DID#: [id number]
== END 2018-07-14 19:05 | disposition home or self-care (01) | DRG 309 ==
LOC: E/R 12:47 → TEL 15:22 → OBSVTOIN 07-12 07:10
PROVIDERS: ADMIT Hospitalist; ATTEND Internal Medicine
PROC: 4B02XSZ Measurement of Cardiac Pacemaker, External Approach (ICD-10-PCS; principal; 2018-07-10)
DX: I49.3 Ventricular premature depolarization (principal); E87.1 Hypo-osmolality and hyponatremia; R00.8 Other abnormalities of heart beat; I49.49 Other premature depolarization; I10 Essential (primary) hypertension; E78.00 Pure hypercholesterolemia, unspecified; E78.5 Hyperlipidemia, unspecified; N40.0 Benign prostatic hyperplasia without lower urinary tract symptoms; Z95.0 Presence of cardiac pacemaker; Z79.02 Long term (current) use of antithrombotics/antiplatelets
CPT/HCPCS: 36415; 71045; 80048; 80053; 80061; 81001; 81003; 82043; 83036; 83735; 83935; 84100; 84155; 84295; 84300; 84439; 84443; 84484; 84560; 85025; 85610; 85730; 87081; 92610; 93005; 93306; 97116; 97161; 97166; 97530; G0378; J0282; J2405; J7030; J7060